=== PATIENT | male | born 1980 | race Caucasian/White ===

== ENCOUNTER → 2017-08-04 | Outpatient (CLI) | payer OTHER | LOC: MRI 12:42 | DX: S89.91XA Unspecified injury of right lower leg, initial encounter (principal); M25.461 Effusion, right knee; X58.XXXA Exposure to other specified factors, initial encounter; Y93.89 Activity, other specified; Y92.89 Other specified places as the place of occurrence of the external cause; Y99.8 Other external cause status ==

== ENCOUNTER 2017-08-25 05:26 | Day surgery (SDC) | payer OTHER ==
[~2017-08-25] VITALS: Ht 177.8 cm; Wt 84.4 kg
--- NOTE | ~2017-08-25 | O ---
[facility] [address] OPERATIVE REPORT Name: GONSALES,NOHEMY Room #: DEP [facility] MMitchell.#: [id number] Admission: 08/25/17 Attend Phys: Ronny Hall MD Discharge: 08/25/17 Date of : 78 Report #: [id number] THIS REPORT FOR: //name// CC: FAM unknown Ronny Hall DATE OF SERVICE: 08/25/2017 PREOPERATIVE DIAGNOSIS: Right knee anterior cruciate ligament tear. POSTOPERATIVE DIAGNOSES: 1. Right knee anterior cruciate ligament tear. 2. Lateral meniscus tear. PROCEDURE: Right knee anterior cruciate ligament reconstruction using soft tissue allograft, all-inside technique and partial lateral meniscectomy. SURGEON: Ronny Hall MD ORE FIELDER: EDGAR Avalos INDICATIONS FOR ORE FIELDER: During the course of operation, extensive manipulation, retraction and graft preparation was required. This was afforded to me by my employment legal assistant. ANESTHETIC: General. INDICATIONS: See hospital H and P. DESCRIPTION OF PROCEDURE: After adequate general anesthesia had been obtained, the patient's right lower extremity was prepped and draped in the usual meticulous sterile fashion. Limb was exsanguinated with gravity, tourniquet inflated to 350 torr. Superomedial portal established by first infiltrating 0.5% Naropin and then making a stab incision with an 11 blade. Inflow cannula placed. The knee was insufflated with fluid. Anterolateral and anteromedial portals were established utilizing the same technique. Complete diagnostic arthroscopy was performed. Medial compartment demonstrated no abnormality. Anterior cruciate ligament was completely disrupted. PCL was intact. Lateral compartment demonstrated a small radial tear of the lateral meniscus. This was debrided with baskets and josephine to a stable rim. The chondral surfaces, lateral compartment normal and patellofemoral compartment normal. The graft was then ____ onto the field and prepared. We placed TightRope devices on both ends and then tensioned the graft 15 pounds and it was soaked in [facility] [place] [address] OPERATIVE REPORT Name: NOHEMY GONSALES Room #: DEP [facility] Jhony#: [id number] Admission: 08/25/17 Attend Phys: Ronny Hall MD Discharge: 08/25/17 Date of : 78 Report #: [id number] antibiotic irrigation. While the graft was being prepared, the knee was being prepared. ACL stump was debrided. The central portion of the ACL footprint was identified both on the tibial and femoral side. On the femoral side, we used the FlipCutter device to place a tunnel and we drilled a retrograde to a depth of 25 mm on the tibial side, likewise we drilled a tunnel retrograde 25 mm with the tibial guide. We removed all bone debris. Passing sutures were placed. At this point, the graft was brought onto the field. The TightRope sutures were then passed with a passing suture, first up into the femoral canal and the graft was passed into the knee. We then pulled the tibial side sutures into the tunnel and it was then dunked into the tibial tunnel. We then tensioned both sides equally, so that we had approximately 20 mm graft on the tibial side and 17 mm on the femoral side. The tensioning was done with the knee in full extension. The knee was then taken through 20 cycles of flexion, extension and then the graft was re-tensioned once again in extension. At this time, the knee was irrigated copiously, both intra-articularly and extra-articularly. The IT band was closed with interrupted 2-0 Vicryl, subcutaneous closed with 2-0 Monocryl, skin was closed with a running subcuticular 2-0 Prolene. Steri-Strips applied. Scope portals closed with 4-0 nylon. Sterile compressive dressing applied. Tourniquet deflated. <ELECTRONICALLY SIGNED> By: Ronny Hall MD 08/30/17 2134 [id number] 1746 Ronny Hall MD /nt
[2017-08-25] MEDS ORDERED: ASPIRIN325 PO (15:12)
== END 2017-08-25 16:40 | disposition home or self-care (01) ==
LOC: TBA 05:26 → OR 05:26
DX: S83.511A Sprain of anterior cruciate ligament of right knee, initial encounter (principal); S83.281A Other tear of lateral meniscus, current injury, right knee, initial encounter; K21.9 Gastro-esophageal reflux disease without esophagitis; X58.XXXA Exposure to other specified factors, initial encounter; Y93.89 Activity, other specified; Y92.89 Other specified places as the place of occurrence of the external cause; Y99.8 Other external cause status; Z98.890 Other specified postprocedural states; Z79.82 Long term (current) use of aspirin
CPT/HCPCS: 50010; 50101; 50386; 50405; 50951; 51038; 51320; 52001; 53340; 54170; 55430; 56524; 56525; 56526; 56530; 62110; 62900; 70005

== ENCOUNTER → 2020-01-03 | Outpatient (CLI) | payer OTHER ==
[~2020-01-03] MED LIST: ASPIRIN325 PO
== END ==
LOC: RAD 13:57
DX: M43.8X4 Other specified deforming dorsopathies, thoracic region (principal)

== ENCOUNTER 2020-05-15 05:18 | Emergency (ER) | payer OTHER ==
[~2020-05-15] VITALS: Ht 180.3 cm; Wt 83.0 kg
[2020-05-15 05:19] VITALS: BP 148/107
[2020-05-15] MEDS ORDERED: AUGMENTIN 875-1 EACH PO (05:25)
== END 2020-05-15 05:43 | disposition home or self-care (01) ==
LOC: ER 05:18
DX: S91.151A Open bite of right great toe without damage to nail, initial encounter (principal); K21.9 Gastro-esophageal reflux disease without esophagitis; Z79.82 Long term (current) use of aspirin; Z98.890 Other specified postprocedural states; W55.01XA Bitten by cat, initial encounter; Y93.89 Activity, other specified; Y92.89 Other specified places as the place of occurrence of the external cause; Y99.8 Other external cause status

== ENCOUNTER → 2021-02-20 | Outpatient (CLI) | payer OTHER ==
[~2021-02-20] MED LIST changes: +AMLODIPINE BESY10 MG PO; +AUGMENTIN 875-1 EACH PO
== END ==
LOC: PAC 09:01
PROVIDERS: Specialist; ATTEND Student in an Organized Health Care Education/Training Program
DX: Z01.818 Encounter for other preprocedural examination (principal); Z20.822 Contact with and (suspected) exposure to COVID-19

== ENCOUNTER → 2021-02-22 | Outpatient (CLI) | payer OTHER ==
[~2021-02-22] VITALS: Ht 180.3 cm; Wt 81.6 kg
--- NOTE | 2021-02-23 09:46 | P ---
[facility] [place] [address] PROCEDURE REPORT Name: NOHEMY GONSALES Room #: REG [facility] Jhony#: [id number] Admission: 02/22/21 Attend Phys: Jim Navarro Discharge: Date of : 78 Report #: [id number] THIS REPORT FOR: cc: KARLY - No family physician/PCP FAM - No family physician/PCP Jim Woodruff MD ~ DOC #: [id number] cc: MD Jim Bradshaw MD DATE OF SERVICE: 02/22/2021 PROCEDURE PERFORMED: Upper endoscopy with biopsies and esophageal dilation. HISTORY OF PRESENT ILLNESS: The patient is a 40-year-old male with a history of intermittent heartburn symptoms, underwent an upper endoscopy 3 years ago, reportedly with esophagitis at that time. He is not taking any antacids other than Tums on a p.r.n. basis. He has had increased heartburn symptoms recently. Also, previous history of H. pylori that was reportedly treated. He does report intermittent dysphagia at this time. DESCRIPTION OF PROCEDURE: The risks and benefits of the procedure were explained to the patient, those risks including but not limited to bleeding, perforation and the risk of sedation. He understood these risks and gave informed consent. Sedation was given using propofol per anesthesia. Next, using a standard Olympus upper endoscope, the scope was placed in the patient's mouth and advanced under direct vision through the esophagus, stomach and into the second portion of the duodenum. The larynx was normal in appearance. The upper and mid esophagus was normal. In the distal esophagus, grade C erosive esophagitis was noted, possible short segment of Grant's was also noted. Biopsies were obtained. No evidence of stricture or narrowing. Overall, the gastric mucosa was normal. Because of his history of previous H. pylori, biopsies were obtained to rule out H. pylori. No evidence of ulcerations or erosions. The pylorus was normal and patent. The duodenal bulb, first and second portion were all normal. The scope was then brought back up into the patient's stomach and a Savary guidewire was inserted through the scope, leaving the guidewire in place as the scope was then withdrawn. Next, a 48-Kazakh Savary dilation of the esophagus was performed without difficulty. The dilator and wire were removed. The scope was reintroduced into the patient's stomach. There was no evidence of mucosal tear after dilation. The scope was then withdrawn and the procedure terminated. The patient tolerated the procedure well. IMPRESSION: 1. Grade C erosive esophagitis. 2. Possible short segment Grant's. [facility] [address] [place] [address] PROCEDURE REPORT Name: NOHEMY GONSALES Room #: REG JOSH Booker#: [id number] Admission: 02/22/21 Attend Phys: Jim Navarro Discharge: Date of : 78 Report #: [id number] 3. Otherwise, normal upper endoscopy. RECOMMENDATIONS: 1. Await biopsy results. 2. Recommend long-term daily PPI therapy. 3. Observe the patient post-dilation. Thank you for allowing me to participate. Jim Woodruff MD CCM/BURAK <ELECTRONICALLY SIGNED> By: Jim Woodruff MD 02/23/21 0946 0742 0 Jim Woodruff MD /felipe
--- NOTE | 2021-02-26 11:07 | PATH ---
[facility] [place] [address] [place] [address] PATHOLOGY RPT PROCEDURE Name: JAVID GONSALESGE Room #: REG JOSH Amezquita.#: [id number] Admission: 02/22/21 Date of : 78 Discharge: Report #: [id number] Path Case #: [id number] [facility] Accession Number: [id number] . 01 Material submitted: . PART A: gastrointestinal site - GASTRIC BIOPSY PART B: esophagus - BIOPSY DISTAL ESOPHAGUS. Modifiers: distal . 01 Clinical history: . DTS/EGD/REFLUX PRIOR HX OF H. PYLORI(TREATED) ESOPHAGITIS FOR B- R/O WAITE'S . 02 Diagnosis: A. Gastric mucosa, gastric to rule out H. pylori, endoscopic biopsy: - Mild reactive gastropathy. - Negative for intestinal metaplasia or atrophy. - Negative for Helicobacter pylori (properly controlled immunohistochemical stain performed). . B. 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 - Negative for dysplasia or malignancy. - Squamous mucosa with mild esophagitis. . (IUV:medical sales; 02/25/2021) MBR 02/25/2021 1745 Local . 02 Comment: The above diagnosis of Waite's esophagus is made due to presence of intestinal metaplasia and with the assumption that the biopsies were obtained from the columnar mucosa in the distal esophagus located at least 1 cm proximal to the top of the gastric folds as per the 2016 ACG guidelines. (IUV:medical sales; 02/25/2021) . 02 Electronically signed: . Radha Montemayor MD, Pathologist NPI- [id number] . 01 Gross description: . A. Received in formalin labeled "Gonsales, [place] and gastric biopsy rule out H. pylori". Received are 4 johns-brown soft tissue fragments ranging from 0.2-0.3 cm. Specimen is entirely submitted in cassette A1. [address] [address] PATHOLOGY RPT PROCEDURE Name: CHINO GONSALES Room #: REG JOSH Booker#: [id number] Admission: 02/22/21 Date of : 78 Discharge: Report #: [id number] Path Case #: [id number] . B. Received in formalin labeled "Gonsales, [place] and biopsy distal esophagus rule out Waite's". Received are 2 field-johns soft tissue fragments ranging from 0.2-0.3 cm. Specimen is entirely submitted in cassette B1.(J; 02/22/2021) BLJ/BLJ 02/22/20212027 Local . 02 Pathologist provided ICD-10: K31.9, K22.9, K20.80 . 02 CPT . 606922, 472606, X18028 Specimen Comment: A courtesy copy of this report has been sent to [phone] Specimen Comment: Report sent to Performed at: [address], [place] [id number] MD Neil Delgado MD Phone: [phone] Performed at: [address] [id number] MD Radha Montemayor MD Phone: [phone]
== END | disposition home or self-care (01) ==
LOC: GI
PROVIDERS: ATTEND Specialist
DX: R12 Heartburn (principal); R13.10 Dysphagia, unspecified; K31.9 Disease of stomach and duodenum, unspecified; K21.00 Gastro-esophageal reflux disease with esophagitis, without bleeding; K22.70 Barrett's esophagus without dysplasia; I10 Essential (primary) hypertension; Z98.890 Other specified postprocedural states; Z79.899 Other long term (current) drug therapy
CPT/HCPCS: 62110; 62900

== ENCOUNTER → 2021-08-15 | Outpatient (CLI) | payer OTHER ==
[2021-08-15 16:05] LABS: ABSOLUTE NEUTROPHILS 2.3 thou/uL (1.4-8.2); BASOPHILS 0.8 % (0.0-2.0); EOSINOPHILS 1.2 % (0.0-3.0); HEMATOCRIT 49.6 % (42.0-52.0); HEMOGLOBIN 16.6 gm/dL (14.0-18.0); LYMPHOCYTES 36.3 % (24.0-44.0); MCH 29.5 pg (26.0-34.0); MCHC 33.5 g/dL (28.0-37.0); MONOCYTES 9.6 % (1.0-8.0); PLATELET COUNT 223 thou/uL (150-400); POLYS 52.1 % (36.0-66.0); RBC 5.63 mil/uL (4.50-6.00); RDW 13.7 % (10.5-14.5); WBC 4.5 thou/uL (4.0-11.0)
[2021-08-15 16:15] LABS: CALCIUM 9.2 mg/dL (8.5-10.1); MAGNESIUM 2.3 mg/dL (1.8-2.4); POTASSIUM 3.9 mmol/L (3.5-5.1)
[2021-08-17 06:07] LABS: FREE TESTOSTERONE 14.6 pg/mL (6.8-21.5)
== END ==
LOC: LAB 15:05
PROVIDERS: ATTEND Hospitalist
DX: R42 Dizziness and giddiness (principal); R53.83 Other fatigue

== ENCOUNTER 2021-10-19 07:13 | Emergency (ER) | payer OTHER ==
[~2021-10-19] VITALS: Ht 180.3 cm; Wt 82.6 kg
[2021-10-19] MEDS ORDERED: OMEPRAZOLE 20 M20 M1 PO (08:04)
[2021-10-19] MEDS ORDERED: EDARBI40 MG PO (08:06)
[2021-10-19 11:03] VITALS: BP 149/102
== END 2021-10-19 11:03 | disposition home or self-care (01) ==
LOC: ER 07:13
PROVIDERS: Emergency Medicine
DX: U07.1 COVID-19 (principal); J02.9 Acute pharyngitis, unspecified; R05.9 Cough, unspecified; M79.10 Myalgia, unspecified site; K21.9 Gastro-esophageal reflux disease without esophagitis; I10 Essential (primary) hypertension; Z79.899 Other long term (current) drug therapy